=== PATIENT | female | born 1990 | race Caucasian/White ===

== ENCOUNTER 2020-10-01 13:26 | Emergency (ER) | payer OTHER ==
[2020-10-01 13:36] VITALS: RESP 18
[2020-10-01 14:28] LABS: Basophils % (A) 0 %; Eosinophils # (A) 0.2 k/uL (0-0.7); Eosinophils % (A) 3 %; HCT 42.9 % (34.0-46.0); HGB 14.4 gm/dL (11.4-16.0); Lymphocytes # (A) 3.1 k/uL (1.0-4.8); Lymphocytes % (A) 49 %; MCHC 33.6 g/dL (31.0-37.0); MCV 86.3 fL (80.0-100.0); Mean Platelet Volume 7.6; Monocytes # (A) 0.4 k/uL (0-1.0); Monocytes % (A) 6 %; Neutrophils # (A) 2.5 k/uL (1.3-7.7); Neutrophils % (A) 38 %; Platelet Count 264 k/uL (150-450); RBC 4.97 m/uL (3.80-5.40); WBC 6.5 k/uL (3.8-10.6)
--- NOTE | 2020-10-01 14:42 | ED ---
ENT HPI - General Chief complaint: ENT Stated complaint: Lump on throat Time Seen by Provider: 10/01/20 13:58 Source: patient Mode of arrival: ambulatory Limitations: no limitations - History of Present Illness Initial comments: Patient is a 29-year-old female presenting to the emergency department with complaints of throat discomfort as well as a possible goiter. Patient states she went to urgent care a few days ago and they told her it was a goiter and that she needed be evaluated for it. Patient denies having a PCP and does not know where to go to get this evaluated. She states she first noticed it about 4 years ago, stated it seemed to get better and then she forgot about it. Patient states the last few weeks she noticed that has increased in size again. Patient states she underwent times has trouble breathing at night when she lays down, she denies any pain at this time. She denies any trouble eating or drinking. She has not seen a family doctor in many years. She denies being . She denies any fever, chills, cough, chest pain, shortness of breath. She denies any nausea or vomiting. She has no further complaints at this time. - Related Data Allergies Allergy/AdvReac Type Severity Reaction Status Date / Time No Known Allergies Allergy Verified 10/01/20 13:35 Review of Systems ROS Statement: Those systems with pertinent positive or pertinent negative responses have been documented in the HPI. ROS Other: All systems not noted in ROS Statement are negative. Past Medical History Past Medical History: No Reported History History of Any Multi-Drug Resistant Organisms: None Reported Past Surgical History: No Surgical Hx Reported Past Psychological History: Anxiety, Depression, PTSD Smoking Status: Current every day smoker Past Alcohol Use History: Rare Past Drug Use History: None Reported General Exam - General Exam Comments Initial Comments: GENERAL: Patient is well-developed and well-nourished. Patient is nontoxic and in no acute distress. HEAD: Atraumatic, normocephalic. EYES: Pupils equal round and reactive to light, extraocular movements intact, sclera anicteric, conjunctiva are normal. Eyelids were unremarkable. ENT: TMs normal, nares patent, oropharynx clear without exudates, no erythema, patient has enlarged adenoids no signs of infection process. Moist mucous membranes. NECK: Normal range of motion, supple without lymphadenopathy or JVD. Patient does have an enlarged thyroid present, no pain with palpation. LUNGS: Unlabored respirations. Breath sounds clear to auscultation bilaterally and equal. No wheezes rales or rhonchi. HEART: Regular rate and rhythm without murmurs, rubs or gallops. ABDOMEN: Soft, nontender, normoactive bowel sounds. No guarding, no rebound. No masses appreciated. : Deferred MUSCULOSKELETAL: Normal extremities with adequate strength and normal range of motion, no pitting or edema. No clubbing or cyanosis. NEUROLOGICAL: Patient is alert and oriented x 3. Motor and sensory are also intact. Cranial nerves II through XII grossly intact. Symmetrical smile. Normal speech, normal gait. PSYCH: Normal mood, normal affect. SKIN: Warm, Dry, normal turgor, no rashes or lesions noted. Limitations: no limitations Course Vital Signs 10/01/20 10/01/20 13:32 15:11 Temperature 98.5 F 98.2 F Pulse Rate 128 H 100 Respiratory 18 18 Rate Blood Pressure 123/87 135/84 O2 Sat by Pulse 98 100 Oximetry Medical Decision Making - Medical Decision Making Patient is a 29-year-old female here for throat discomfort for the last 4 years, been increasing over the past few weeks. On exam patient does have an enlarged thyroid gland, enlarged adenoids, no signs of an infection. She did arrive the cardiac but no fevers. She states she normally has a high heart rate. Laboratory has no acute abnormalities, normal white count, TSH is low at 0.015, free T4 is 3.47. I did do an ultrasound of the neck which shows an enlarged heterogeneous gland, correlate for thyroiditis, Graves' disease. I discussed these findings with the patient. Her vitals were rechecked, her heart rate is 100. She is stable for discharge. She does not have a primary care physician, I will give her several referrals for PCP. She is in agreement with this plan of care. She is stable for discharge. Case discussed with Dr. Fair - Lab Data Result diagrams: 10/01/20 14:21 10/01/20 14:21 Lab Results 10/01/20 10/01/20 Range/Units 14:21 14:21 WBC 6.5 (3.8-10.6) k/uL RBC 4.97 (3.80-5.40) m/uL Hgb 14.4 (11.4-16.0) gm/dL Hct 42.9 (34.0-46.0) % MCV 86.3 (80.0-100.0) fL MCH 29.0 (25.0-35.0) pg MCHC 33.6 (31.0-37.0) g/dL RDW 12.0 (11.5-15.5) % Plt Count 264 (150-450) k/uL MPV 7.6 Neutrophils % 38 % Lymphocytes % 49 % Monocytes % 6 % Eosinophils % 3 % Basophils % 0 % Neutrophils # 2.5 (1.3-7.7) k/uL Lymphocytes # 3.1 (1.0-4.8) k/uL Monocytes # 0.4 (0-1.0) k/uL Eosinophils # 0.2 (0-0.7) k/uL Basophils # 0.0 (0-0.2) k/uL Sodium 138 (137-145) mmol/L Potassium 4.4 (3.5-5.1) mmol/L Chloride 109 H (98-107) mmol/L Carbon Dioxide 22 (22-30) mmol/L Anion Gap 7 mmol/L BUN 12 (7-17) mg/dL Creatinine 0.29 L (0.52-1.04) mg/dL Est GFR (CKD-EPI)AfAm >90 (>60 ml/min/1.73 sqM) Est GFR (CKD-EPI)NonAf >90 (>60 ml/min/1.73 sqM) Glucose 109 H (74-99) mg/dL Calcium 10.2 (8.4-10.2) mg/dL Total Bilirubin 0.5 (0.2-1.3) mg/dL AST 33 (14-36) U/L ALT 42 H (4-34) U/L Alkaline Phosphatase 113 (38-126) U/L Total Protein 7.5 (6.3-8.2) g/dL Albumin 4.4 (3.5-5.0) g/dL TSH <0.015 L (0.465-4.680) mIU/L Free T4 3.47 H (0.78-2.19) ng/dL Disposition Clinical Impression: Thyroiditis, Hyperthyroidism Disposition: HOME SELF-CARE Condition: Stable Instructions (If sedation given, give patient instructions): Hyperthyroidism (ED) Additional Instructions: Please return to the Emergency Department if symptoms worsen or any other concerns. Hyperactive thyroid found on lab tests today. You need to follow up with a primary care physician as discussed. Is patient prescribed a controlled substance at d/c from ED?: No Referrals: None,Stated [Primary Care Provider] - 1-2 days Ruthie Maya MD [REFERRING] - 1-2 days Shante Griggs MD [REFERRING] - 1-2 days Jillian Rebolledo III, MD [STAFF PHYSICIAN] - 1-2 days
[2020-10-01 14:43] LABS: ALT 42 U/L (4-34); AST 33 U/L (14-36); African American GFR (CKD) >90 (>60 ml/min/1.73 sqM); Albumin 4.4 g/dL (3.5-5.0); Alkaline Phosphatase 113 U/L (38-126); Anion Gap 7 mmol/L; Blood Urea Nitrogen 12 mg/dL (7-17); Calcium 10.2 mg/dL (8.4-10.2); Carbon Dioxide 22 mmol/L (22-30); Chloride 109 mmol/L (98-107); Glucose 109 mg/dL (74-99); Non-African American GFR(CKD) >90 (>60 ml/min/1.73 sqM); Potassium 4.4 mmol/L (3.5-5.1); Sodium 138 mmol/L (137-145); Total Bilirubin 0.5 mg/dL (0.2-1.3); Total Protein 7.5 g/dL (6.3-8.2)
--- NOTE | 2020-10-01 15:00 | US ---
EXAMINATION TYPE: US thyroid st tissue head/neck DATE OF EXAM: 10/01/2020 COMPARISON: NONE CLINICAL HISTORY: goiter, neck swelling. goiter GLAND SIZE: Right Lobe: 5.9 x 2.4 x 2.5 cm Overall Parenchyma: heterogenous Left Lobe: 5.8 x 2.7 x 2.6 cm Overall Parenchyma: heterogeneous Isthmus Thickness: 0.6 cm NODULES RIGHT: # of nodules measured on right: 0 LEFT: # of nodules measured on left: 0 ISTHMUS: # of nodules measured in the isthmus: 0 Bilateral neck scanned, lymph nodes left neck IMPRESSION: Enlarged heterogeneous gland, correlate for thyroiditis, Graves' disease
[2020-10-01 15:12] VITALS: BP 135/84; PULSE 100; TEMP 98.2
[2020-10-01 16:11] LABS: T4, Free (Free Thyroxine) 3.47 ng/dL (0.78-2.19)
== END 2020-10-01 15:57 | disposition home or self-care (01) ==
LOC: EC 13:26
DX: E06.9 Thyroiditis, unspecified (principal); E05.90 Thyrotoxicosis, unspecified without thyrotoxic crisis or storm; F17.200 Nicotine dependence, unspecified, uncomplicated
CPT/HCPCS: 36415; 76536; 80053; 84439; 84443; 85025; 99284